=== PATIENT | female | born 1975 | race Caucasian/White ===

== ENCOUNTER 2021-08-17 14:18 | Outpatient (CLI) | payer OTHER, SELFPAY ==
--- NOTE | ~2021-08-17 | US_ITS ---
EXAMINATION: US thyroid DATE: 08/17/2021 14:44 INDICATION: Abnormal thyroid function tests. TECHNIQUE: Multiple ultrasound images of the thyroid were obtained. COMPARISON: None. FINDINGS: The right thyroid lobe measures 3.8 x 1.8 x 1.8 cm. The left thyroid lobe measures 3.4 x 1.1 x 1.2 c m. In the right thyroid lobe, there is 11 mm solid, hypoechoic, gperw-wsyi-mngc nodule with smooth m argin without echogenic foci (TI-RADS TR4). In the right thyroid lobe, there is a 6 mm cystic nodule (TR1). In the right thyroid lobe, there is a 5 mm mixed cystic and solid, hypoechoic, zfivw-hodf-ofdc than tall nodule with ill-defined margin without echogenic foci (TR3). IMPRESSION: 1. Small thyroid nodules. Thyroid ultrasound is recommended in one year. Reviewed, dictated and finalized at location A.
== END 2021-08-17 14:19 | disposition home or self-care (01) ==
LOC: CHSIMG 14:25
PROVIDERS: PCP Family Medicine; Visit Provider Registered Nurse
DX: R79.89 Other specified abnormal findings of blood chemistry (principal)
CPT/HCPCS: 76536

== ENCOUNTER 2023-01-07 12:33 | Emergency (ER) | payer OTHER, SELFPAY ==
--- NOTE | ~2023-01-07 | CT_ITS ---
EXAMINATION: CT abdomen pelvis w con DATE: 01/07/2023 17:35 INDICATION: RUQ tenderness TECHNIQUE: Computed tomography (CT) of the abdomen and pelvis was performed with 100 mL Omnipaque-350 intravenous contrast. Automated exposure control and iterative reconstruction technique were employe d. The dose-length product was 1573.27 mGy-cm. COMPARISON: None. FINDINGS: Lower thorax: Small hiatal hernia Liver: Enlarged, diffuse fatty infiltration. Biliary/Gallbladder: Cholelithiasis. No bile duct dilation. Pancreas: No mass or duct dilation. Spleen: Normal. Adrenals:No mass. Kidneys: Bilateral cortical scarring, severe on the left. Significant left renal atrophy. No suspicio us mass, obstructing calcification, or hydronephrosis. GI tract: No small or large bowel dilation. Normal appendix. Diverticulosis without diverticulitis. Mesentery/Peritoneum: No ascites, mass, or free air. Retroperitoneum: No mass. Pelvis: Mild bladder wall edema in a partially distended urinary bladder. Normal uterus and right ova ry. 1.4 cm simple left ovarian cyst. Soft Tissues: Soft tissues and body wall unremarkable. Bones: No acute osseous finding. IMPRESSION: Hepatomegaly and steatosis. Cystitis versus wall thickening from incomplete urinary bladder distention. Cholelithiasis, without CT evidence of cholecystitis Reviewed, dictated and finalized at location K.
[2023-01-07 12:49] VITALS: BP 181/88; PULSE 90; RESP 16; TEMP 36.9; O2SAT 100
--- NOTE | 2023-01-07 14:56 | ED.GENADULT ---
HPI - General Adult General Chief complaint: Abdominal Pain <Sandeep Ocasio PA-C - Last Filed: 01/07/23 18:55> Stated complaint: UTI/abdominal pain <Sandeep Ocasio PA-C - Last Filed: 01/07/23 18:55> Time Seen by Provider: 01/07/23 16:05 <Sandeep Ocasio PA-C - Last Filed: 01/07/23 18:55> Source: patient <Sandeep Ocasio PA-C - Last Filed: 01/07/23 18:55> Mode of arrival: ambulatory <INEZ Menchaca Last Filed: 01/07/23 18:55> Limitations: no limitations <Sandeep Ocasio PA-C - Last Filed: 01/07/23 18:55> History of Present Illness HPI narrative: This is a 47-year-old female who presents to the ED with chief complaint of UTI symptoms for the past 4 days and intermittent abdominal pain and N/V for the past 6 months. Reports urinary burning, frequency that feels like previous UTIs. Has tried to treat with PO fluids and cranberry pills. States the upper abdominal pain and N/V seem to be worse in the past couple days. Reports sxs worse with eating. Last meal last night. Reports she has been having acid reflux sxs as well and been using nexium without relief. Also endorses bilateral flank pain. Denies fevers, chills, chest pain, shortness of breath, cough. Abdominal surgical history of tubal ligation. <Sandeep Ocasio PA-C - Last Filed: 01/07/23 18:55> Related Data Home medications: Home Medications Medication Instructions Recorded Confirmed acetaminophen 325 mg capsule 325 mg PO Q6H PRN 01/29/20 (Tylenol) alprazolam 0.25 mg tablet 0.25 mg PO DAILY 01/29/20 bupropion HCl 150 mg 24 hr tablet, 150 mg PO QAM 01/29/20 extended release calcium carbonate 200 mg calcium 200 mg PO BID 01/29/20 (500 mg) chewable tablet (Tums) gabapentin 100 mg capsule 100 mg PO TID 01/29/20 <INEZ Menchaca Last Filed: 01/07/23 18:55> Allergies/adverse reactions: Allergies Allergy/AdvReac Type Severity Reaction Status Date / Time No Known Allergies Allergy Uncoded 02/05/19 14:02 <Sandeep Ocasio PA-C - Last Filed: 01/07/23 18:55> Review of Systems Review of Systems: All systems as dictated in HPI <Sandeep Ocasio PA-C - Last Filed: 01/07/23 18:55> PMFSH Past Medical History Medical History: Medical History Acid reflux Anemia Anxiety Vaginal delivery 02-24-93, forceps assisted , full term, male, 6#7 07-25-96, , full term, male, 9#9 10-03-04, , full term, female, 7#6 <Sandeep Ocasio PA-C - Last Filed: 01/07/23 18:55> Surgical History Surgical History: Surgical History History of ankle surgery 2006 History of bilateral tubal ligation 2004 [place] teeth extracted <Sandeep Ocasio PA-C - Last Filed: 01/07/23 18:55> Family History Family History: Family History Grandparent Breast cancer Diabetes mellitus grandmother Acute myocardial infarction grandfather Other Cerebrovascular accident cousin Mother Diabetes mellitus Father Diabetes mellitus Hypertension Hypercholesteremia <INEZ Menchaca Last Filed: 01/07/23 18:55> Social History Social History: Social History (Updated 01/29/20 @ 15:26 by Ashley Mckinley CMA) Years smoked: 7 Smoking status: Current every day smoker Tobacco type: cigarettes Alcohol intake: current Drinks per week: 1 Substance use: never <Sandeep Ocasio PA-C - Last Filed: 01/07/23 18:55> Exam Narrative: GENERAL: Well-appearing, well-nourished, and in no acute distress. HEAD: Normocephalic, atraumatic. EYES: PERRLA and EOMI. ENT: Nares clear, no rhinorrhea or epistaxis. Mucous membranes moist. Oropharynx without tonsillar hypertrophy exudate or other lesions. NECK: Supple. No adenopathy or masses. CHEST: No respiratory distress. Clear to au
[2023-01-07 15:05] LABS: Basophils Percent Auto 0.5 % (0.2-1.2); Eosinophils Percent Auto 0.2 % (0-4.4); Hematocrit 41.3 % (37.0-47.0); Hemoglobin 12.8 g/dL (12.0-15.0); Immature Granulocyte Absolute 0.04 K/mm3 (0.00-0.031); Immature Granulocyte Percent A 0.5 % (0-0.5); Lymphocytes Absolute Auto 2.45 K/mm3 (0.9-3.2); Lymphocytes Percent Auto 27.8 % (18.3-44.2); Mean Corpuscular Hemoglobin 26.8 pg (26-34); Mean Corpuscular Volume 86.6 fl (80-100); Mean Platelet Volume 9.8 fl (7.4-10.4); Monocytes Absolute Auto 0.7 K/mm3 (0.1-0.6); Monocytes Percent Auto 7.4 % (2.6-8.5); Neutrophils Absolute Auto 5.6 K/mm3 (1.3-6.7); Neutrophils Percent Auto 63.6 % (45.5-73.1); Platelet Count Result 346 k/mm3 (150-375); Red Blood Count 4.77 M/mm3 (4.2-5.4); Red Cell Distribution Width 15.2 % (11.5-14.5); White Blood Count 8.8 K/mm3 (4.5-10.0)
[2023-01-07 15:10] LABS: Appearance Urine Turbid (Clear); Bacteria Urine 4+ /hpf; Bilirubin Urine Negative (Negative); Color Urine Yellow (Yellow); Glucose Urine UA Negative (Negative); Ketones Urine Negative (Negative); Leukocyte Esterase Ur 3+ LEU/UL (Negative); Nitrate Urine Negative (Negative); Non Pathogenic Casts 0-2; Protein Urine Trace mg/dL (Negative); Specific Grav Ur 1.016 (1.001-1.035); Squamous Epithelial Cell Urine None seen /hpf (Few); Urobilinogen Urine 0.2 mg/dL (<2.0); WBC Urine >100 /hpf
[2023-01-07 15:18] LABS: Add Urine Microscopic? YES
[2023-01-07 15:22] LABS: Alanine Aminotransferase 27 U/L (6-35); Albumin Level 4.1 g/dL (3.5-5.1); Alkaline Phosphatase 95 U/L (38-126); Anion Gap 12 mmol/L (8-16); Aspartate Amino Transferase 32 U/L (14-36); Bilirubin,Total 0.4 mg/dL (0.2-1.3); Blood Urea Nitrogen 17 mg/dL (7-17); Calcium 8.8 mg/dL (8.4-10.2); Carbon Dioxide 23 mmol/L (22-30); Chloride 104 mmol/L (98-107); Estimated CRCL calculation 75 ml/min; Estimated Glomerular Filt Rate 48; Glucose 90 mg/dL (65-110); Lipase 55 U/L (23-300); Potassium 3.9 mmol/L (3.4-5.0); Sodium 139 mmol/L (137-145)
--- NOTE | 2023-01-07 18:49 | ED.ABDPAIN ---
HPI - Abdominal Pain General Chief Complaint: Abdominal Pain Stated Complaint: UTI/abdominal pain Time Seen by Provider: 01/07/23 16:05 Source: patient Mode of arrival: ambulatory Limitations: no limitations Related Data Home Medications Medication Instructions Recorded Confirmed acetaminophen 325 mg capsule 325 mg PO Q6H PRN 01/29/20 (Tylenol) alprazolam 0.25 mg tablet 0.25 mg PO DAILY 01/29/20 bupropion HCl 150 mg 24 hr tablet, 150 mg PO QAM 01/29/20 extended release calcium carbonate 200 mg calcium 200 mg PO BID 01/29/20 (500 mg) chewable tablet (Tums) gabapentin 100 mg capsule 100 mg PO TID 01/29/20 Allergies Allergy/AdvReac Type Severity Reaction Status Date / Time No Known Allergies Allergy Uncoded 02/05/19 14:02 [facility] Past Medical History Medical History Acid reflux Anemia Anxiety Vaginal delivery 02-24-93, forceps assisted , full term, male, 6#7 07-25-96, , full term, male, 9#9 10-03-04, , full term, female, 7#6 Surgical History Surgical History History of ankle surgery 2006 History of bilateral tubal ligation 2005 [place] teeth extracted Family History Family History Grandparent Breast cancer Diabetes mellitus grandmother Acute myocardial infarction grandfather Other Cerebrovascular accident cousin Mother Diabetes mellitus Father Diabetes mellitus Hypertension Hypercholesteremia Social History Social History (Updated 01/29/20 @ 15:26 by Ashley Mckinley CMA) Years smoked: 7 Smoking status: Current every day smoker Tobacco type: cigarettes Alcohol intake: current Drinks per week: 1 Substance use: never Course Vital Signs Vital signs: Vital Signs Temperature 98.4 F 01/07/23 12:49 Pulse Rate 90 01/07/23 12:49 Respiratory Rate 16 01/07/23 12:49 Blood Pressure 181/88 H 01/07/23 12:49 Pulse Oximetry 100 01/07/23 12:49 Temperature 98.4 F 01/07/23 12:49 Pulse Rate 90 01/07/23 12:49 Respiratory Rate 16 01/07/23 12:49 Blood Pressure 181/88 H 01/07/23 12:49 Pulse Oximetry 100 01/07/23 12:49 MDM - Abdominal Pain Lab Data 01/07/23 14:53 01/07/23 14:53 Labs: Lab Results 01/07/23 Range/Units 14:53 WBC 8.8 (4.5-10.0) K/mm3 RBC 4.77 (4.2-5.4) M/mm3 Hgb 12.8 (12.0-15.0) g/dL Hct 41.3 (37.0-47.0) % MCV 86.6 (80-100) fl MCH 26.8 (26-34) pg MCHC 31.0 L (32-36) g/dl RDW 15.2 H (11.5-14.5) % Plt Count 346 (150-375) k/mm3 MPV 9.8 (7.4-10.4) fl Immature Gran % (Auto) 0.5 (0-0.5) % Neut % (Auto) 63.6 (45.5-73.1) % Lymph % (Auto) 27.8 (18.3-44.2) % [place] % (Auto) 7.4 (2.6-8.5) % Eos % (Auto) 0.2 (0-4.4) % Baso % (Auto) 0.5 (0.2-1.2) % Lymph # (Auto) 2.45 (0.9-3.2) K/mm3 [place] # (Auto) 0.7 H (0.1-0.6) K/mm3 Eos # (Auto) 0.0 (0-0.3) K/mm3 Baso # (Auto) 0.0 (0.0-0.1) K/mm3 Abs Immat Gran (auto) 0.04 H (0.00-0.031) K/mm3 Absolute Neuts (auto) 5.6 (1.3-6.7) K/mm3 Absolute Nucleated RBC 0.0 (0.0-0.012) K/mm3 Nucleated RBC % 0.0 (0.0-0.2) % Sodium 139 (137-145) mmol/L Potassium 3.9 (3.4-5.0) mmol/L Chloride 104 (98-107) mmol/L Carbon Dioxide 23 (22-30) mmol/L Anion Gap 12 (8-16) mmol/L BUN 17 (7-17) mg/dL Creatinine 1.20 H (0.7-1.0) mg/dL Estim Creat Clear Calc 75 ml/min Estimated GFR 48 L (59 - ) Glucose 90 (65-110) mg/dL Calcium 8.8 (8.4-10.2) mg/dL Total Bilirubin 0.4 (0.2-1.3) mg/dL AST 32 (14-36) U/L ALT 27 (6-35) U/L Alkaline Phosphatase 95 (38-126) U/L Total Protein 8.0 (6.3-8.2) g/dL Albumin 4.1 (3.5-5.1) g/dL Lipase 55 (23-300) U/L Urine Color Yellow (Yellow) Urine Appearance Turbid H (Clear) Urine pH 6.0 (5.0-9.
[2023-01-07] MEDS: CEPHALEXIN 500 MG CAPSULE PO (19:21)
[2023-01-07 19:23] VITALS: BP 164/84; PULSE 81; RESP 16; O2SAT 99
== END 2023-01-07 19:24 | disposition home or self-care (01) ==
PROVIDERS: Emergency Provider Emergency Medicine; PCP Registered Nurse
DX: N39.0 Urinary tract infection, site not specified (principal); K80.20 Calculus of gallbladder without cholecystitis without obstruction; F17.210 Nicotine dependence, cigarettes, uncomplicated; F41.9 Anxiety disorder, unspecified
CPT/HCPCS: 36415; 74177; 80053; 81001; 83690; 85025; 87077; 87086; 87186; 99284; A9270; Q9967

== ENCOUNTER 2023-01-18 08:52 | Outpatient (CLI) | payer OTHER, SELFPAY ==
[2023-01-18 09:43] LABS: Amylase 63 U/L (30-110)
== END 2023-01-18 08:53 | disposition home or self-care (01) ==
LOC: ANHSURGERY 08:58
PROVIDERS: PCP Registered Nurse; Visit Provider Surgery
DX: Z01.818 Encounter for other preprocedural examination (principal); K80.10 Calculus of gallbladder with chronic cholecystitis without obstruction
CPT/HCPCS: 36415; 82150; 86850; 86900; 86901

== ENCOUNTER 2023-01-21 00:23 | Day surgery (SDC) | payer OTHER, SELFPAY ==
[2023-01-16 09:50] VITALS: BMI 45.3
--- NOTE | 2023-01-16 10:00 | PC.NURSE ---
Report to the Outpatient Waiting Room, entrance under the green pavilion located off [address], at time 7:30 on date 01/21/23. Planned Procedure Time: 9:30. Time changes happen often and if your time is changed the preop area will call you the afternoon before. - You and your visitor will be asked to self-screen and do not enter if you have any COVID symptoms. - A mask is optional within the hospital at this time. Patients may have clear liquids (water, carbonated beverages, clear teas, apple juice) until 3 hours prior to surgery (6:30) with a maximum of 20 ounces. - No food from midnight until time of surgery Take the following medications with a SIP of water the morning of surgery: N/A DO NOT STOP ANY OF YOUR OTHER PRESCRIPTION MEDICATIONS PRIOR TO SURGERY ?EXCEPT THE FOLLOWING Medications to discontinue per physician: N/A Date to take last dose: N/A Please no make-up, nail yoruba, hairspray, perfume, deodorant, or body powder the day of surgery. No jewelry (including any body piercings) or valuables the day of surgery, leave them at home. Please take a shower or bath the night before, or the morning of, surgery with an antibacterial soap. Wear comfortable, loose fitting clothing. - Jewelry must be removed prior to entering the operating room. Rings and piercings that are not removed may be cut off. - The hospital will not accept responsibility for valuables. - Please leave all valuables, including medications, at home the day of surgery. If you are going home after surgery, a licensed lifter/driver must drive you home. - NO public transportation without another adult if you receive anesthesia. - We recommend that an adult stay with you for 24 hours following discharge. - We also recommend that you do not drive, make important decision, drink alcoholic beverages, or take any drugs that were not prescribed by your health care provider for at least 24 hours after your discharge time. Follow any additional instructions given to you from your surgeon. If you or anyone in your household have experienced Covid symptoms in the past week, please notify your surgeon or the nurse liaison at the phone number below for possible testing. Telephone instructions given to PT - KIMBERLEY WOODRUFF and asked if any additional questions and then verbalized understanding. Patient advised to call surgeon office or pre surgery nurse liaison [phone] if any additional questions.
[2023-01-21] VITALS (11 sets, daily range): BP systolic 132–161; BP diastolic 68–93; PULSE 71–82; RESP 14–20; TEMP 36.3–36.4; O2SAT 94–100
--- NOTE | 2023-01-21 07:19 | WPDHPUPDATE1 ---
History and Physical Update Update Date/Time: 01/21/23 07:19 History and Physical has been reviewed, including an updated exam of the patient. There are NO changes in the patient's condition. Risks, benefits, and alternatives have been discussed and questions answered. Patient agrees to proceed with procedure.
[2023-01-21] MEDS: ACETAMINOPHEN 500 MG TABLET 1000 MG PO (08:00)
[2023-01-21] MEDS: LACTATED RINGERS 1,000 ML 30 ML IV CONT ×2 (08:15→11:16)
[2023-01-21] MEDS: INDOCYANINE GREEN 25 MG VIAL WITH DILUENT 3.75 MG IV PUSH (08:15)
[2023-01-21] MEDS: KETOROLAC 15 MG/ML VIAL (*BKC) IV PUSH (08:15)
--- NOTE | 2023-01-21 08:52 | WPDANESEPPF ---
Anes - Initial Pre Proc Eval Procedure: Operation Date: 01/21/23 09:30 Proposed Procedures p Robotic Assisted Laparoscopic Cholecystectomy - Cheryl Flores MD Date/Time: 01/21/23 08:52 Surgeon: Cheryl Flores MD Pre Op Diagnosis: Chronic Calculous Cholecystitis Patient Data Age: 47 Gender: F Height: 1.73 m Weight: 135.2 kg Allergies Allergy/AdvReac Type Severity Reaction Status Date / Time No Known Allergies Allergy Unknown Uncoded 01/16/23 09:49 Home Medications Medication Instructions Recorded Confirmed Type No Home Medications 01/16/23 01/16/23 History Patient hx anesthesia problems: none Family hx anesthesia problems: none Results Review: All pre-operative results and documents have been reviewed as part of the pre-operative evaluation. [facility] Past Medical History Medical History Acid reflux Anemia Anxiety Depression Hypothyroid Pre-diabetes Vaginal delivery 02-24-93, forceps assisted , full term, male, 6#7 07-25-96, , full term, male, 9#9 10-03-04, , full term, female, 7#6 Surgical History Surgical History History of ankle surgery 2005 History of bilateral tubal ligation 2004 [place] teeth extracted Family History Family History Grandparent Breast cancer Diabetes mellitus grandmother Acute myocardial infarction grandfather Other Cerebrovascular accident cousin Mother Diabetes mellitus Father Diabetes mellitus Hypertension Hypercholesteremia Social History Social History Smoking packs per day: 0.75 Smoking cigarettes per day: 15.0 Years smoked: 10 Smoking pack-years: 7.50 Smoking status: Former smoker Tobacco type: cigarettes Smoking end date: 04/08/21 Alcohol intake: current Drinks per week: 1 Alcohol use details: RARE Substance use: never Substance use type: does not use Living arrangements: with family Spiritual care concerns: No Anes - Eval Final PreProcedure Day of Procedure 01/21/23 08:52 Patient weight: morbidly obese Heart: regular rate and rhythm Lungs: clear to auscultation Airway: Mallampati scale class II Neurological: alert and oriented Last oral intake: >/= 8 hours ASA classification: III Anesthetic plan: proceed Anesthesia type and monitoring: general ETT and standard monitoring Results Review: All pre-operative results and documents have been reviewed as part of the pre-operative evaluation. Informed Consent: The patient's anesthetic plan and its attendant risks and benefits were discussed with the patient/family/POA. Questions were solicited and answers provided to the satisfaction of the patient/family/POA.
[2023-01-21] MEDS: ceFAZolin 3 GM/D5W 100 ML 100 ML IVPB (09:32)
[2023-01-21] MEDS: BUPIVACAINE/EPINEPHRINE 0.5% 50 ML VIAL 40 ML INFILTRATE (10:04)
--- NOTE | 2023-01-21 11:13 | W.PM.PROC2 ---
Procedure Note - Detailed Date of Procedure 01/21/23 Pre-op Diagnosis Acute cholecystitis with cholelithiasis Post-op Diagnosis Same Procedure Performed robotic assisted cholecystectomy Surgeon Cheryl Flores MD Anesthesia General Indications 47-year-old female presenting to the office complaining of upper abdominal pain. Workup and history significant for cholecystitis, cholelithiasis. Findings Acute cholecystitis, cholelithiasis Description of Procedure The patient was taken to the operating room and placed in the supine position. After adequate induction of general anesthesia, the patient was prepped and draped in the normal sterile fashion. A time-out was then done to verify the patient's identity, as well as the procedure being performed. I began by making a 8 mm incision in the periumbilical region. A Veress needle was then placed in the peritoneal cavity and CO2 gas was insufflated. After adequate pneumoperitoneum was achieved, the Veress needle was removed and a 8 mm Optiview trocar was placed under direct visualization. Once into the abdominal cavity, the introducer was removed and the laparoscope was placed through this trocar site. Under direct visualization, I placed a further 8 mm port in the left mid abdomen and 2 additional 8 mm ports in the right mid abdomen. The robot was then docked to these ports sites. I then went to the console. The gallbladder was then identified and noted to be severely inflamed. There was noted to be a significant amount of fat encompassing the gallbladder indicative of cholecystitis. I was able to place a grasper at the dome of the gallbladder and this was retracted up and over the liver. A 2nd retractor was used to grasp the infundibulum and retracted laterally. I began by trying to take down some of this fat encompassing the gallbladder. This fat was noted to be very friable and bleeding was noted while trying to take this down. Using the cautery, I was able to gain hemostasis. Once this was taken down, I began visualization and dissection of the triangle of Calot. Again there was a lot of inflammation in this area with noted friable tissue. I then began dissection around the triangle Calot. I first identified the cystic duct, I was able to visualize the entirety of the duct from its proximal insertion into the gallbladder to its distal junction with the common hepatic/common bile duct junction. I then used the firefly visualization at this point to confirm the anatomy. Of note, the ICG did not empty into the cystic duct secondary to obstructing stone in the infundibulum. The proximal cystic duct was then further skeletonized, clipped, and transected. Next I visualized the cystic artery. Again the structure was skeletonized, clipped, and transected. I then again used firefly to confirm anatomy and no aberrant anatomy was noted. I then used the Bovie cautery to take down the peritoneal attachments of the gallbladder off the liver bed. This was significantly more difficult than usual given the amount of inflammation and the intrahepatic nature of the gallbladder. Once the gallbladder specimen was completely detached, an Endo pouch was placed through the left 8 mm port site and the gallbladder specimen was placed in the endo-pouch and subsequently removed. Of note, I made a cholecystostomy and decompressed the gallbladder to facilitate removal. I then re-examined the right upper quadrant. Mild oozing was noted in the hepatic and controlled with the Bovie cautery. Hemostasis was noted in the liver bed and the clips were noted to be in good position on both the duct and the artery. Given the amount of inflammation, I did put some hemostatic powder in the liver bed. No other pathology was seen in the right upper quadrant. All instruments were then removed and the robot was undocked. The abdomen was then desufflated and all ports were removed. All port sites were then closed with 4-0 Monocryl valdovinos
[2023-01-21] MEDS: fentaNYL CITRATE INJ (*CRX) 100 MCG/2 ML VIAL 25 MCG IV PUSH ×8 (11:45→12:43)
== END 2023-01-21 13:50 | disposition home or self-care (01) ==
PROVIDERS: PCP Registered Nurse; Visit Provider Surgery
PROC: 0FT44ZZ Resection of Gallbladder, Percutaneous Endoscopic Approach (ICD-10-PCS; CPT 47562; principal; 2023-01-21 09:30)
DX: K80.10 Calculus of gallbladder with chronic cholecystitis without obstruction (principal); D64.9 Anemia, unspecified; F41.9 Anxiety disorder, unspecified; F32.A Depression, unspecified; E03.9 Hypothyroidism, unspecified; R73.03 Prediabetes; Z87.891 Personal history of nicotine dependence; E66.01 Morbid (severe) obesity due to excess calories; Z68.42 Body mass index [BMI] 45.0-49.9, adult
CPT/HCPCS: 47562; S2900; 36415; 82150; 86850; 86900; 86901; 88304; A9270; J0330; J0690; J1100; J1885; J2250; J2405; J2704; J3010; J7030; J7120

== ENCOUNTER 2024-06-29 16:12 | Emergency (ER) | payer OTHER, SELFPAY ==
--- NOTE | ~2024-06-29 | XR_ITS ---
XR abdomen/kub 1V Ordering provider: Jose Carmona APRN History: . right lower back pain- hematuria r/o stone X 1 WEEK . Comparison: None. FINDINGS: BOWEL: Nonobstructive bowel gas pattern. ORGANOMEGALY: None. SIGNIFICANT PATHOLOGIC CALCIFICATIONS: Possibility of faintly calcified stone in the right renal hil um cannot be excluded. OTHER: No free air is seen under the diaphragm. Degenerative the spine. Bilateral hip osteoarthritic changes. Pubic symphysitis. IMPRESSION: NO ACUTE ABDOMINAL FINDINGS. Possible faintly calcified stone in the right hilum. Noncontrast CT evaluation advised. Reviewed, dictated and finalized at location A.
--- NOTE | 2024-06-29 16:15 | ED.FEMALEGU ---
HPI - Female Genitourinary General Chief complaint: Urogenital-Female Stated complaint: Side Pain/Uti Symptoms Time Seen by Provider: 06/29/24 16:14 Source: patient Mode of arrival: ambulatory Limitations: no limitations History of Present Illness HPI Narrative: Jeaneth is a 49-year-old female patient presenting to the clinic today with complaints of right lower back pain and UTI symptoms. She reports over the past week she has had discomfort with urination, frequency, and urgency. She has been taking some azo however she has not taken azo for a few days and has been taking cranberry pills. States she has pain in the right lower back to the posterior hip and sharp pain is radiating into her right leg. Denies any loss of bowel or bladder. No saddle anesthesia. Denies history of kidney stones. Related Data Allergies Allergy/AdvReac Type Severity Reaction Status Date / Time No Known Allergies Allergy Unknown Uncoded 06/29/24 16:19 Review of Systems Review of Systems: Pertinent positives per HPI. Patient denies any fever, chills, rash, headache, visual changes, dizziness, cough, runny nose, sore throat, shortness of breath, chest pain, palpitations, nausea, vomiting, diarrhea, constipation, abdominal pain, or any urinary issues. [facility] Past Medical History Medical History Pre-diabetes Hypothyroid Depression Vaginal delivery 02-24-93, forceps assisted , full term, male, 6#7 07-25-96, , full term, male, 9#9 10-03-04, , full term, female, 7#6 Anxiety Anemia Acid reflux Surgical History Surgical History History of laparoscopic cholecystectomy 01/21/23 PDC History of ankle surgery 2006 [place] teeth extracted History of bilateral tubal ligation 2004 Family History Family History Grandparent Breast cancer Diabetes mellitus grandmother Acute myocardial infarction grandfather Other Cerebrovascular accident cousin Mother Diabetes mellitus Father Diabetes mellitus Hypertension Hypercholesteremia Social History Social History Smoking packs per day: 0.75 Smoking cigarettes per day: 15.0 Years smoked: 10 Smoking pack-years: 7.50 Smoking status: Former smoker Tobacco type: cigarettes Smoking end date: 04/08/21 Alcohol intake: current Drinks per week: 1 Alcohol use details: RARE Substance use: never Substance use type: does not use Living arrangements: with family Spiritual care concerns: No Comments At the time of my signature, I reviewed and agree with the nursing past medical, surgical, social, and family history. There is no relevant family history pertinent to the patient complaint. Exam Narrative: General: Well-developed, well nourished, in no apparent distress. Head: Normocephalic, atraumatic. Cardio: Regular rate and rhythm, s1 and s2 normal, no murmur appreciated. Resp: Clear to auscultation bilaterally, no rhonchi, rales, wheezing or rubs. Abdomen: Soft, pliable, bowel sounds present in all quadrants, non-tender to palpation, no organomegly, no CVAT tenderness. Musculoskeletal: No deformity, tender to palpation over the right posterior hip/si joint, grossly normal range of motion, muscle strength strong and equal in BLE. SLT negative, patellar reflexes 2/4 bilaterally, negative foot drop, normal gait and station Course Course Emergency Course: Portions of this record may have been created with voice recognition software. Level of Care: Express Care Visit Vital Signs Vital signs: Vital Signs Temperature 36.7 C 06/29/24 16:21 Pulse Rate 86 06/29/24 16:21 Respiratory Rate 20 06/29/24 16:21 Blood Pressure 167/102 H 06/29/24 16:21 Pulse Oximetry 98 06/29/24 16:21 Oxygen Delivery Room Air 06/29/24 16:21 Temperature 36.7 C 06/29/24 16:21 Pulse Rate 86 06/29/24 16:21 Respiratory Rate 20 06/29/24 16:21 Blood Pressure 167/102 H 06/29/24 16:21 Pulse Oximetry 98 06/29/24 16:21 Oxygen Delivery Room Air 06/29/24 16:21 Vital signs reviewed MDM - Female Genitourinary MDM Narrative Medical decision making narrative: At the time of visit patient is resting comfortably on the exam table. Patient appears to be nontoxic. Labs: Urinalysis shows trace of blood without sign of infection. We will send urine for culture Diagnostics: KUB x-ray was performed to rule out nephrolithiasis/ureterolithiasis. Shows possible faintly calcified stone in the right hilum. Plan: Patient does not have any CVAT tenderness and if the kidney stone is in the right hilum it is likely in the kidney still. Patient does have a trace hematuria. No sign of UTI. We will send urine for culture. Will place patient on Medrol Dosepak and Flexeril as I feel patient is suffering more from a sacroiliac joint pain with right-sided sciatica. Recommend follow-up with her PCP or go to her local emergency room if her symptoms worsen for noncontrast CT. Supportive measures were discussed with the patient and they voiced understanding discharge instructions and agrees to treatment plan. Return precautions reviewed Differential Diagnosis Differential diagnosis: Likely urinary tract infection, bacterial vaginosis, trichomoniasis, cervicitis, ovarian cyst, vaginitis, ruptured ovarian cyst, cyst of Bartholin's gland, cystitis, dysmenorrhea and other (Ureterolithiasis, nephrolithiasis, pyelonephritis, SI joint dysfunction, low back pain with radiculopathy) Lab Data Labs: Lab Results 06/29/24 Range/Units 16:28 POC Urine Color Yellow POC Urine Clarity Clear POC Urine pH 6.5 POC Ur Specif [place] 1.015 POC Urine Protein Negative (Negative) POC Ur Glucose (UA) Negative (Negative) POC Urine Ketones Negative (Negative) POC Urine Blood Trace (Negative) POC Urine Nitrite Negative (Negative) POC Urine Bilirubin Negative (Negative) POC Urine Urobilinogen 0.2 POC U Leukocyte Esteras Negative (Negative) Imaging Data Radiologist's impression: ITS Impressions Abdomen X-Ray 06/29/24 16:49 IMPRESSION: NO ACUTE ABDOMINAL FINDINGS. Possible faintly calcified stone in the right hilum. Noncontrast CT evaluation advised. Discharge Plan Discharge Clinical Impression: Sacroiliac joint pain Sciatica Qualifiers: Laterality: right Qualified Code(s): M54.31 - Sciatica, right side Patient Disposition: Home, Self-Care Condition: Stable Instructions: Antibiotic Form, Sciatica (ED), Hip Pain (ED) Additional Instructions: Urinalysis shows trace of intact blood. We will send urine for culture KUB shows a possibly a calcified stone in your right hilum of the kidney-recommend if symptoms persist to follow-up with PCP or go to the emergency room for a noncontrast CT to rule out stone Take any prescription medication only as prescribe-Medrol Dosepak and Flexeril Be mindful of sedation precautions given to you if taking a muscle relaxer. May use heat or ice to the affected area Consider massage or chiropractor adjustment if this was discussed with provider May use blue emu, lidocaine patches, or asper cream to affected area- do not apply heat or ice directly over cream- can cause burn. Complete appropriate back stretching exercises. Follow up with your PCP in 3-5 days if symptom persist. Patient Language: Spanish Prescriptions: New methylprednisolone [Medrol (Nikolai)] 4 mg tablets,dose pack See Rx Instructions PO .COMPLEX Qty: 21 0RF Rx Instructions: orally per package directions cyclobenzaprine 10 mg tablet 10 mg PO Q8H PRN (Reason: muscle spasm) 7 Days Qty: 21 0RF Follow-up/Referrals: PHYSICIAN,PROJECT PORTFOLIO ANALYST [Primary Care Provider] - Time of Disposition: 17:06 Quality NIHSS Nursing Documentation ED NIHSS nursing documentation: reviewed/agree
[2024-06-29 16:21] VITALS: BP 167/102; PULSE 86; RESP 20; TEMP 36.7; O2SAT 98
[2024-06-29 16:35] LABS: EDUAAPPEAR Clear; EDUABILI Negative (Negative); EDUABLOOD Trace (Negative); EDUACOLOR1 Yellow; EDUAGLUCOSE Negative (Negative); EDUAKETONE Negative (Negative); EDUALEUKO Negative (Negative); EDUANITRATE Negative (Negative); EDUAPH 6.5; EDUAPROTEIN Negative (Negative); EDUASPGRAVITY 1.015; EDUAUROBILI 0.2
== END 2024-06-29 17:10 | disposition home or self-care (01) ==
PROVIDERS: Emergency Provider Nurse Practitioner Family
DX: M53.3 Sacrococcygeal disorders, not elsewhere classified (principal); M54.31 Sciatica, right side; Z87.891 Personal history of nicotine dependence; R73.03 Prediabetes; E03.9 Hypothyroidism, unspecified; K21.9 Gastro-esophageal reflux disease without esophagitis
CPT/HCPCS: 74018; 81003; 87086; 99213; G0463